=== PATIENT | female | born 1955 | race Caucasian/White ===

== ENCOUNTER 2020-09-05 08:15 | Outpatient (CLI) | payer BC, SELFPAY ==
--- NOTE | ~2020-09-05 | US_ITS ---
EXAMINATION:US venous doppler LE RT INDICATION:Right leg swelling TECHNIQUE: Multiple grayscale, color flow and Doppler images of the right lower extremity deep venous systems were obtained and reviewed. COMPARISON:No prior studies for comparison. FINDINGS: The common femoral, superficial femoral and popliteal veins demonstrate normal respiratory variation, augmentation and compressibility. Color flow is also seen within the posterior tibial, pe roneal, greater saphenous and profunda veins. IMPRESSION: 1: No lower extremity deep venous thrombosis. Reviewed, dictated and finalized at location A.
== END 2020-09-05 08:16 | disposition home or self-care (01) ==
LOC: CHSIMG 08:18
PROVIDERS: PCP Internal Medicine; Visit Provider Internal Medicine
DX: M79.89 Other specified soft tissue disorders (principal)
CPT/HCPCS: 93971

== ENCOUNTER 2020-09-26 10:11 | Outpatient (CLI) | payer BC, SELFPAY ==
[2020-09-26 10:40] LABS: Basophils Absolute Auto 0.03 K/mm3 (0.00-0.10); Basophils Percent Auto 0.5 % (0.0-1.0); Eosinophils Absolute Auto 0.07 K/mm3 (0.02-0.50); Eosinophils Percent Auto 1.2 % (1.0-6.0); Hematocrit 39.8 % (35.0-49.0); Hemoglobin 12.8 g/dL (12.0-15.0); Immature Granulocyte Absolute 0.02 K/mm3 (0.00-0.00); Immature Granulocyte Percent A 0.3 % (0.0-0.0); Lymphocytes Absolute Auto 1.88 K/mm3 (1.10-4.50); Lymphocytes Percent Auto 31.5 % (18.0-42.0); Mean Corpuscular HGB Conc 32.2 g/dL (32.0-36.0); Mean Corpuscular Hemoglobin 29.2 pg (27.0-31.0); Mean Corpuscular Volume 90.7 fL (78.0-102.0); Mean Platelet Volume 10.5 fl (9.2-11.8); Monocytes Absolute Auto 0.42 K/mm3 (0.10-0.90); Neutrophils Absolute Auto 3.5 K/mm3 (1.7-7.2); Neutrophils Percent Auto 59.5 % (50.0-70.0); Platelet Count Result 267 K/mm3 (150-420); Red Blood Count 4.39 M/mm3 (4.20-5.40); Red Cell Distribution Width 14.6 % (11.6-14.4)
[2020-09-26 10:55] LABS: Add Urine Microscopic? NO; Appearance Urine Clear (Clear); Bilirubin Urine Negative (Negative); Blood Urine Negative (Negative); Color Urine Light Yellow (Yellow); Glucose Urine UA Negative (Negative); Ketones Urine Negative (Negative); Leukocyte Esterase Ur Negative (Negative); Nitrate Urine Negative (Negative); Protein Urine Negative (Negative); Specific Grav Ur <= 1.005 (1.010-1.020); Urobilinogen Urine 0.2 mg/dL (0.2-1.0)
[2020-09-26 11:04] LABS: Alanine Aminotransferase 27 U/L (14-59); Albumin Level 3.9 g/dL (3.4-5.0); Alkaline Phosphatase 66 U/L (46-116); Anion Gap 11 mmol/L (8-16); Aspartate Amino Transferase 17 U/L (15-37); Bilirubin,Total 0.4 mg/dL (0.00-1.00); Blood Urea Nitrogen 20 mg/dL (7-18); Calcium 9.3 mg/dL (8.5-10.1); Carbon Dioxide 27 mmol/L (21-32); Chloride 104 mmol/L (98-108); Cholesterol 256 mg/dL (0-200); Estimated Glomerular Filt Rate > 60; Free T4 Free Thyroxine 0.96 ng/dL (0.76-1.46); Glucose 96 mg/dL (70-99); HDL Direct 88 mg/dL (40-60); LDL Cholesterol Calculated 156 mg/dL (<130); Osmolality Calculated 296 mOsm/kg (285-295); Potassium 4.8 mmol/L (3.5-5.1); Sodium 142 mmol/L (136-145); Thyroid Stimulating Hormone 0.81 uIU/mL (0.36-3.74); Total Protein 7.4 g/dL (6.4-8.2); Triglycerides 60 mg/dL (0-150)
[2020-09-30 20:02] LABS: Vitamin D 25 Hydroxy 37 ng/mL (30-100)
== END 2020-09-26 10:12 | disposition home or self-care (01) ==
LOC: CHSLAB 10:13
PROVIDERS: PCP Internal Medicine; Visit Provider Internal Medicine
DX: Z00.00 Encounter for general adult medical examination without abnormal findings (principal)
CPT/HCPCS: 36415; 80053; 80061; 81003; 82306; 84439; 84443; 84481; 85025

== ENCOUNTER 2020-11-07 08:39 | Outpatient (CLI) | payer BC, SELFPAY ==
--- NOTE | ~2020-11-07 | DEXA_ITS ---
Bone Density Report Name: Antonietta Friedman Age: 64 Sex: Female Ethnicity: White Date of : 1955 Indication: postmenopausal; screening for osteoporosis; height loss; Referring Provider: Claude Shaw Study: Bone densitometry was performed. Exam Date: November 07, 2020 Accession number: [id number] Bone Density: Region BMD T-score Z-score Classification AP Spine(L1-L4) 1.085 0.3 2.0 Normal Femoral Neck (Left) 0.856 0.1 1.5 Normal Total Hip (Left) 1.011 0.6 1.7 Normal Femoral Neck (Right) 0.810 -0.4 1.1 Normal Total Hip (Right) 0.997 0.4 1.6 Normal Total Hip Mean 1.004 0.5 1.7 Normal World Health Organization criteria for BMD impression classify patients as: Normal (T-score at or above -1.0), Osteopenia (T-score between -1.0 and -2.5), or Osteoporosis (T-score at or below -2.5). 10-year Fracture Risk: FRAX not reported because: All T-scores for Spine Total, Hip Total, Femoral Neck at or above -1.0 Clinical Information Provided by Patient: Has used the following medications: Vitamin D, Calcium Patient maximum height was 68 Menopause Age: 52 Drinks caffeinated beverages Onset of menses at age 14 Number of children 2 Impression: The patient has normal bone mass. Discussion: BONE DENSITY IS ABOVE THE MINIMUM DESIRABLE LEVEL AT ALL SKELETAL SITES TESTED. This patient?s bone mineral density is above the minimum desirable level (T-score -1.0 or better) at all sites measured. The patient should follow a healthful lifestyle (good nutrition with adequate calcium and vitamin D, and appropriate weight-bearing exercise). Follow-Up: Consider repeating this study in 5 years or sooner if there is some new clinical indication. Reported by: Dr. Isael Beyer on 11/07/2020 9:12:00 AM. Reviewed, dictated and finalized at location AMonisha HASSAN
== END 2020-11-07 08:40 | disposition home or self-care (01) ==
LOC: CHSIMG 08:41
PROVIDERS: PCP Internal Medicine; Visit Provider Internal Medicine
DX: Z78.0 Asymptomatic menopausal state (principal)
CPT/HCPCS: 77080

== ENCOUNTER 2021-10-21 11:56 | Outpatient (CLI) | payer BC, SELFPAY ==
--- NOTE | ~2021-10-21 | XR_ITS ---
EXAM: XR shoulder RT min 2V, XR shoulder LT min 2V DATE: 10/21/2021 12:21 (accession [id number]), 10/21/2021 12:22 (accession [id number]) HISTORY: B/L shoulder pain x 1yr, RT worse than LT, LROM, crunchy . COMPARISON: Right shoulder x-ray 02/07/2010. FINDINGS: Decreased mineralization. No fracture or dislocation. No lytic or blastic lesion. Mild rig ht AC joint hypertrophy. Mild right humeral head osteophytosis. Moderate right humeral head superior migration. No erosion or periosteal change. Soft tissues within normal limits. IMPRESSION: Likely rotator cuff pathology on the right. Mild right AC joint and glenohumeral osteoart hritis. No significant radiographic finding in the left shoulder. Reviewed, dictated and finalized at [facility]. IMPRESSION: Likely rotator cuff pathology on the right. Mild right AC joint and glenohumeral osteoarthritis. No significant radiographic finding in the left s [place].
== END 2021-10-21 11:57 | disposition home or self-care (01) ==
LOC: CHSIMG 11:58
PROVIDERS: PCP Internal Medicine; Visit Provider Internal Medicine
DX: M25.512 Pain in left shoulder (principal); M25.511 Pain in right shoulder
CPT/HCPCS: 73030

== ENCOUNTER 2021-10-26 11:20 | Outpatient (CLI) | payer BC, SELFPAY ==
--- NOTE | ~2021-10-26 | US_ITS ---
US retroperitoneal comp 10/26/2021 12:10 Procedure: Realtime transabdominal ultrasound of the kidneys and bladder. Indication: Left hydronephrosis. History of breast cancer and melanoma. Comparison: No prior studies for comparison. Findings: Renal echotexture is normal bilaterally without contour deforming mass or renal calculus. T here is mild left hydronephrosis. The right kidney measures 10.4 cm and left kidney measures 11.3 cm. Bladder within normal limits. Impression: 1: Mild left hydronephrosis. Reviewed, dictated and finalized at location A. Impression: 1: Mild left hydronephrosis.
== END 2021-10-26 11:21 | disposition home or self-care (01) ==
LOC: CHSIMG 11:21
PROVIDERS: PCP Internal Medicine; Visit Provider Internal Medicine
DX: N13.30 Unspecified hydronephrosis (principal)
CPT/HCPCS: 76770

== ENCOUNTER 2021-11-01 12:42 | Outpatient (CLI) | payer BC, SELFPAY ==
--- NOTE | ~2021-11-01 | MR_ITS ---
EXAMINATION: MR shoulder RT wo con DATE: 11/01/2021 13:36 INDICATION: Right shoulder pain TECHNIQUE: Magnetic resonance imaging (MRI) of the right shoulder was performed without intravenous c ontrast. Sequences included axial PD-weighted FS FSE, coronal oblique PD-weighted FS FSE, coronal obl ique T2-weighted FS FSE, sagittal PD-weighted FS FSE, and sagittal T1-weighted SE. COMPARISON: None. FINDINGS: Coracoacromial arch: The acromion undersurface is minimally curved in morphology (type I-II). Small subacromial spurs darrin g the lateral margin of the acromion. The coracoacromial ligament is normal. Mild acromioclavicular o steoarthritis. Rotator cuff: Mild supraspinatus and infraspinatus tendinopathy with full-thickness tear extending 1.5 cm AP along the superior facet footplate and measuring approximately 2.5 cm medial to lateral. Additional small p artial-thickness articular sided tear involving the remaining more posterior supraspinatus tendon. Th e teres minor tendon is normal. Mild to moderate tendinopathy of the subscapularis tendon. Small spli t tear between the superficial portion of the tendon which remains contiguous with the transverse hum eral ligament and the deeper portion of the tendon which remains attached to the lesser tuberosity fo otplate. As well as mild medial subluxation of the long head biceps tendon across the medial rim of t he intertubercular groove and into the split tear defect. Normal rotator cuff muscle bulk and signal. Biceps tendon, glenoid labrum and glenohumeral cartilage: Long head of the biceps tendon is normal. Glenoid labrum is normal. Glenohumeral cartilage is normal. Fluid: Small glenohumeral joint effusion with extension with proportional small amount of fluid cartilage al tanja the long head biceps tendon sheath. Small amount of fluid in the subacromial/subdeltoid bursa gareth hnique with the fluid in the joint space through the full-thickness rotator cuff tear defect. No loos e osteochondral bodies. Bones: Normal marrow signal with no edema, fracture or pathologic marrow replacing process. IMPRESSION: 1. Mild supraspinatus and infraspinatus tendinopathy with small full-thickness tear along the superio r facet footplate of the supraspinatus tendon transitioning to a partial-thickness articular sided te ar at the posterior aspect of the supraspinatus tendon. 2. Mild to moderate subscapularis tendinopathy with small longitudinal split tear between the superfi cial portion of the tendon contiguous with the transverse humeral ligament and the deeper portion whi ch remains attached to the lesser tuberosity. 3. Partial subluxation of the long head biceps tendon across the medial rim of the intertubercular gr oove and into the subscapularis tendon split tear defect. Reviewed, dictated and finalized at location A. IMPRESSION: 1. Mild supraspinatus and infraspinatus tendinopathy with small full-thickness tear along the superior facet footplate of the supraspinatus tendon transitioni ng to a partial-thickness articular sided tear at the posterior aspect of the s upraspinatus tendon. 2. Mild to moderate subscapularis tendinopathy with small longitudinal split te ar between the superficial portion of the tendon contiguous with the transverse humeral ligament and the deeper portion which remains attached to the lesser t uberosity. 3. Partial subluxation of the long head biceps tendon across the medial rim of the intertubercular groove and into the subscapularis tendon split tear defect.
== END 2021-11-01 12:43 | disposition home or self-care (01) ==
LOC: ANHIMG 12:45
PROVIDERS: PCP Internal Medicine; Visit Provider Internal Medicine
DX: M25.511 Pain in right shoulder (principal)
CPT/HCPCS: 73221

== ENCOUNTER 2022-03-29 10:17 | Outpatient (CLI) | payer MEDICARE, BC, SELFPAY ==
[2022-03-29 10:37] LABS: Basophils Absolute Auto 0.03 K/mm3 (0.00-0.10); Basophils Percent Auto 0.4 % (0.0-1.0); Eosinophils Absolute Auto 0.09 K/mm3 (0.02-0.50); Eosinophils Percent Auto 1.2 % (1.0-6.0); Hematocrit 39.3 % (35.0-42.0); Hemoglobin 12.6 g/dL (11.7-13.8); Immature Granulocyte Absolute 0.02 K/mm3 (0.00-0.00); Immature Granulocyte Percent A 0.3 % (0.0-0.0); Lymphocytes Absolute Auto 2.68 K/mm3 (1.10-4.50); Lymphocytes Percent Auto 36.1 % (18.0-42.0); Mean Corpuscular HGB Conc 32.1 g/dL (32.0-36.0); Mean Corpuscular Volume 90.3 fL (78.0-102.0); Mean Platelet Volume 10.2 fl (9.2-11.8); Monocytes Absolute Auto 0.45 K/mm3 (0.10-0.90); Monocytes Percent Auto 6.1 % (2.0-11.0); Neutrophils Absolute Auto 4.2 K/mm3 (1.7-7.2); Neutrophils Percent Auto 55.9 % (50.0-70.0); Platelet Count Result 271 K/mm3 (150-420); Red Blood Count 4.35 M/mm3 (4.20-5.40); Red Cell Distribution Width 14.3 % (11.6-14.4); White Blood Count 7.4 K/mm3 (4.8-10.8)
[2022-03-29 10:45] LABS: Add Urine Microscopic? NO; Appearance Urine Clear (Clear); Bilirubin Urine Negative (Negative); Blood Urine Negative (Negative); Color Urine Light Yellow (Yellow); Glucose Urine UA Negative (Negative); Ketones Urine Negative (Negative); Leukocyte Esterase Ur Negative LEU/UL (Negative); Nitrate Urine Negative (Negative); Protein Urine Negative (Negative); Urobilinogen Urine 0.2 mg/dL (0.2-1.0)
[2022-03-29 11:24] LABS: Alanine Aminotransferase 26 U/L (14-59); Alkaline Phosphatase 69 U/L (46-116); Anion Gap 6 mmol/L (8-16); Aspartate Amino Transferase 14 U/L (15-37); Bilirubin,Total 0.5 mg/dL (0.00-1.00); Blood Urea Nitrogen 18 mg/dL (7-18); Calcium 9.5 mg/dL (8.5-10.1); Carbon Dioxide 30 mmol/L (21-32); Chloride 101 mmol/L (98-108); Cholesterol 288 mg/dL (0-200); Estimated Glomerular Filt Rate > 60; Free T4 Free Thyroxine 1.01 ng/dL (0.76-1.46); Glucose 90 mg/dL (70-99); HDL Direct 92 mg/dL (40-60); LDL Cholesterol Calculated 176 mg/dL (<130); Osmolality Calculated 285 mOsm/kg (285-295); Potassium 4.5 mmol/L (3.5-5.1); Sodium 137 mmol/L (136-145); Thyroid Stimulating Hormone 0.59 uIU/mL (0.36-3.74); Total Protein 7.3 g/dL (6.4-8.2); Triglycerides 102 mg/dL (0-150)
== END 2022-03-29 10:18 | disposition home or self-care (01) ==
LOC: CHSLAB 10:27
PROVIDERS: PCP Internal Medicine; Visit Provider Internal Medicine
DX: R53.83 Other fatigue (principal); E78.5 Hyperlipidemia, unspecified
CPT/HCPCS: 36415; 80053; 80061; 81003; 84439; 84443; 85025

== ENCOUNTER 2022-06-24 14:52 | Outpatient (CLI) | payer MEDICARE, BC, SELFPAY ==
--- NOTE | ~2022-06-24 | XR_ITS ---
XR knee RT 3V DATE: 06/24/2022 15:47 INDICATION: Generalized right knee pain for 6 months. No known injury. TECHNIQUE: 4 views COMPARISON: None FINDINGS: There is slight periarticular spurring of the patella and medial tibial plateau consistent with mild osteoarthritis. No fracture or dislocation or joint effusion. No radiopaque intra-articular loose body or chondrocalcinosis. No periosteal reaction or bone destruction. IMPRESSION: Mild osteoarthritis Reviewed, dictated and finalized at location A. IMPRESSION: Mild osteoarthritis
--- NOTE | ~2022-06-24 | XR_ITS ---
XR wrist RT min 3V DATE: 06/24/2022 15:46 INDICATION: Bump at first metacarpal for 6 months TECHNIQUE: 4 views of right wrist COMPARISON: None FINDINGS: Osteopenia. There is severe osteoarthritic joint space narrowing at the triscaphe joint. No fracture or dislocation, periosteal reaction or bone destruction or chondrocalcinosis. 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
== END 2022-06-24 14:53 | disposition home or self-care (01) ==
LOC: CHSIMG 14:55
PROVIDERS: PCP Internal Medicine; Visit Provider Internal Medicine
DX: M25.531 Pain in right wrist (principal); M25.561 Pain in right knee; M17.11 Unilateral primary osteoarthritis, right knee; M19.031 Primary osteoarthritis, right wrist; M85.89 Other specified disorders of bone density and structure, multiple sites
CPT/HCPCS: 73110; 73562

== ENCOUNTER 2022-07-03 06:53 | Outpatient (CLI) | payer MEDICARE, BC, SELFPAY ==
--- NOTE | ~2022-07-03 | MR_ITS ---
EXAMINATION: MR knee RT wo con DATE: 07/03/2022 07:55 INDICATION: Lateral right knee pain radiating to the ankle. The knee locks and gives out. TECHNIQUE: Magnetic resonance imaging (MRI) of the right knee was performed without intravenous contr ast. Sequences included coronal PD-weighted FSE, coronal PD-weighted FS FSE, sagittal T2-weighted FS E, sagittal PD-weighted FS FSE and axial PD weighted fat saturated FSE. COMPARISON: None. FINDINGS: Medial compartment: Medial meniscus is normal. Articular cartilage is normal. Tiny marginal osteophytes are present. Lateral compartment: Longitudinal horizontal tear extending from the anterior horn to the posterior horn of the lateral me niscus. Partial-thickness chondral fissuring without degenerative subchondral changes at the anterior weightbearing lateral femoral condyle and juxtaposed central aspect of the lateral tibial plateau. Patellofemoral compartment: Regions of deep chondral ulceration at the medial and lateral patellar facets, the latter with underl tru subarticular cystic change along the cephalad lateral margin of the apical ridge. Additional gwyn p chondral ulceration at the inferior half of the trochlear groove with underlying tiny central subch ondral osteophyte. Ligaments and tendons: Anterior and posterior cruciate ligaments are normal. The medial collateral ligament and fibular betsy ateral ligament complex are normal. The extensor mechanism is normal. The visualized medial and later al hamstring tendons as well as the iliotibial band are normal. Fluid: Physiologic amount of fluid in the joint space. Osseous/other: Normal marrow signal. No fracture or pathologic marrow replacing process. 1.6 x 1.3 x 0.6 cm ovoid lo w signal intensity lesion overlying the anterior root of the medial meniscus potentially representing a loose body but without evident calcification at this location on the prior radiographs. Differenti al would include focal fibrosis or localized pigmented villonodular synovitis. IMPRESSION: 1. Longitudinal horizontal tear extending from anterior to posterior horn of the lateral meniscus. 2. Mild tricompartmental osteoarthritis with regions of high-grade chondromalacia in the patellofemor al compartment and moderate grade chondromalacia in the lateral compartment and tiny marginal osteoph ytes but without appreciable chondromalacia in the medial compartment. 3. 1.6 x 1.3 x 0.6 similar ovoid T1 and T2 hypointense lesion Hoffa's fat pad overlying the anterior root of the medial meniscus most likely either a loose body or localized pigmented villonodular synov itis. Reviewed, dictated and finalized at location A. IMPRESSION: 1. Longitudinal horizontal tear extending from anterior to posterior horn of th e lateral meniscus. 2. Mild tricompartmental osteoarthritis with regions of high-grade chondromalac ia in the patellofemoral compartment and moderate grade chondromalacia in the l ateral compartment and tiny marginal osteophytes but without appreciable chondr omalacia in the medial compartment. 3. 1.6 x 1.3 x 0.6 similar ovoid T1 and T2 hypointense lesion Hoffa's fat pad o verlying the anterior root of the medial meniscus most likely either a loose jammie dy or localized pigmented villonodular synovitis.
== END 2022-07-03 06:54 | disposition home or self-care (01) ==
LOC: CHSIMG 06:55
PROVIDERS: PCP Internal Medicine; Visit Provider Internal Medicine
DX: M25.561 Pain in right knee (principal); S83.281A Other tear of lateral meniscus, current injury, right knee, initial encounter; M17.11 Unilateral primary osteoarthritis, right knee; M94.261 Chondromalacia, right knee
CPT/HCPCS: 73721

== ENCOUNTER 2022-07-13 15:21 | Outpatient (CLI) | payer MEDICARE, BC, SELFPAY ==
--- NOTE | ~2022-07-13 | MR_ITS ---
EXAMINATION: MR wrist RT wo con DATE: 07/13/2022 16:24 INDICATION: Right wrist pain TECHNIQUE: Magnetic resonance imaging (MRI) of the right wrist wrist was performed without intravenou s contrast. Sequences performed include axial PD-weighted FSE and PD-weighted FS FSE, coronal PD-weig hted FS FSE and T1-weighted SE, and sagittal PD-weighted FS FSE and PD-weighted FSE. COMPARISON: Right wrist radiographs dated 06/24/2022 FINDINGS: Intrinsic ligaments: Partial tear of the volar and central membranous component of the scapholunate ligament. The dorsal c omponent appears to remain intact. There is amorphous low to intermediate signal intensity in the reg ion of the volar component of the lunotriquetral ligament without a discrete fluid signal intensity t ear. There is mild cystic change at the ulnar side of the lunate along the proximal margin of its art iculation with the triquetrum at the expected site of insertion of the ligament. Findings suggest sca rring related to partial tear of the ligament. Triangular fibrocartilage complex (TFCC): There is a linear partial-thickness tear along the distal margin to the ulnar side of the central fib er cartilaginous disc of the triangular fibrocartilage complex. There is a partial tear of the dorsal radioulnar ligament. The volar radioulnar ligament along with the radial, foveal and styloid attachm ents of the triangular fibrocartilage complex remain intact. Mild increased signal and thickening of the distal aspect of the ulnar triquetral ligament also suggesting scarring related to partial tear. There is a tear of the ulnar side of the extensor carpi ulnaris of sheath allowing partial subluxatio n of the normal-appearing extensor carpi ulnaris tendon across the ulnar rim of the intertubercular g roove. Extensor wrist: Extensor tendons of the wrist are normal. No tenosynovitis. Flexor wrist: There is moderate amount fluid extending along the flexor carpi radialis tendon sheath consistent wit h moderate tenosynovitis. The flexor carpi radialis tendon remains normal. The flexor tendons of the wrist are otherwise normal. No abnormality in the carpal tunnel with normal median nerve. Guyon's canal: Guyon's canal including the ulnar nerve and artery are normal. Bones/other: Bone alignment is normal. No fracture or pathologic marrow replacing process. Osteoarthritis, moderat e severity with subarticular edema-like and cystlike changes at the triscaphe joint and mild at the d istal radioulnar, midcarpal and first and second carpal metacarpal joints. IMPRESSION: 1. Moderate tenosynovitis along the normal flexor carpi radialis tendon which directly underlies the marker indicating the site of pain. 2. Partial tear of the central fiber cartilaginous disc and dorsal radioulnar component of the triang ular fibrocartilage complex. 3. Partial tears of the scapholunate and lunotriquetral ligaments. 4. Polyarticular osteoarthritis at the right wrist and carpus, moderate severity at the triscaphe bobby nt and otherwise mild. Reviewed, dictated and finalized at location A. IMPRESSION: 1. Moderate tenosynovitis along the normal flexor carpi radialis tendon which d irectly underlies the marker indicating the site of pain. 2. Partial tear of the central fiber cartilaginous disc and dorsal radioulnar c omponent of the triangular fibrocartilage complex. 3. Partial tears of the scapholunate and lunotriquetral ligaments. 4. Polyarticular osteoarthritis at the right wrist and carpus, moderate severit y at the triscaphe joint and otherwise mild.
== END 2022-07-13 15:22 | disposition home or self-care (01) ==
PROVIDERS: PCP Internal Medicine; Visit Provider Internal Medicine
DX: M65.841 Other synovitis and tenosynovitis, right hand (principal); S63.591A Other specified sprain of right wrist, initial encounter; M19.031 Primary osteoarthritis, right wrist; X58.XXXA Exposure to other specified factors, initial encounter
CPT/HCPCS: 73221

== ENCOUNTER 2022-08-09 13:44 | Outpatient (RCR) | payer MEDICARE, BC, SELFPAY ==
--- NOTE | 2022-08-09 15:05 | PTOPEVAL1 ---
Assessment and note entered by Radha Falk DPT Evaluation Information Assessment Status Evaluation Diagnosis R knee pain Onset 08/03/22 Subjective Information Patient reports about a month ago she was out of a walk and her knee R buckled and since then her pain has increased. She reports she had a R hip replacement about 1 year ago and reports her knee always went in with walking. Patient has not returned to power walking, riding her bike, lifting heavy objects, carrying and standing for prolonged periods. She is retired. Reported Pain Level Pain Score 0: Self Report Assessment PT Clinical Summary Patient is a 66 year old female who presents to PT with R knee pain. She demonstrates decreased R knee strength, decreased R knee AROM and impaired gait mechanics limiting her ability to squat and lift objects for house hold chores, ambulate prolonged distances and stand for house hold tasks . She would benefit from skilled PT to address impairments and return to PLOF. Plan of Care Interventions Electrical Stimulation,Gait Training,Hot Pack/Cold Pack,Intermittent Compression,Manual Therapy, Mechanical Traction,Neuro Re-education,Patient/ Caregiver Educati,Therapeutic Activities, Therapeutic Exercise,Self-Care/Home Management PT Services Indicated Yes Treatment Frequency and 2x weekly for 12 visits Duration These treatments will address the objective and functional deficits as defined above. The patient will be advanced safely and appropriately in order for the patient to progress towards his/her prior level of function. Additional exercises will be introduced and as well as a comprehensive home exercise program upon discharge, if needed, ?to ensure carryover of functional gains achieved in the clinic. This treatment plan has been reviewed and agreement upon by the patient.
--- NOTE | 2022-08-10 07:56 | OPREHPOC ---
Outpatient Therapy Plan of Care This is a Multidisciplinary Plan of Care that may contain components documented by all disciplines (PT, OT, and ST.) PT Problem 1 PT Problem #1 Knowledge Deficit PT Goal 1 Goal Patient to demonstrate independence with HEP. Target Visit 12 PT Problem 2 PT Problem #2 Pain PT Goal 1 Goal Patient to report ability to walk 1 mile with no increase in pain. Target Visit 12 PT Problem 3 PT Problem #3 Impaired Range of Motion PT Goal 1 Goal Patient to demonstrate 0-140 degrees of active ROM of the R knee to return to picking up objects at PLOF Target Visit 12 PT Problem 4 PT Problem #4 Impaired Strength PT Goal 1 Goal Patient to demonstrate 5/5 strength of R knee and hip to return to prolonged standing and ambulation at PLOF. Target Visit 12
--- NOTE | 2022-09-23 15:33 | PTOPDC ---
Assessment and note entered by JT File, PT Evaluation Information Assessment Status Discharge Diagnosis R knee pain Onset 08/03/22 Subjective Information patient reports she feels great today. she reports no pain. she reports she is joining [employer] to continue her exercise routine. Reported Pain Level Pain Score 0: Self Report Assessment PT Clinical Summary mrs. fonseca presents to skilled PT for her 12th skilled PT visit. she has met all goals for skilled PT, except for rom into flexion of the R knee. she will DC skilled PT today and continue with HEP independent at home and in the gym. Plan of Care PT Services Indicated Yes
--- NOTE | 2022-09-23 15:33 | OPREHPOC ---
Outpatient Therapy Plan of Care This is a Multidisciplinary Plan of Care that may contain components documented by all disciplines (PT, OT, and ST.) PT Problem 1 PT Problem #1 Knowledge Deficit PT Goal 1 Goal Patient to demonstrate independence with HEP. Target Visit 12 Progress Met PT Problem 2 PT Problem #2 Pain PT Goal 1 Goal Patient to report ability to walk 1 mile with no increase in pain. Target Visit 12 Progress Met PT Problem 3 PT Problem #3 Impaired Range of Motion PT Goal 1 Goal Patient to demonstrate 0-140 degrees of active ROM of the R knee to return to picking up objects at PLOF Target Visit 12 Progress Partially Met PT Problem 4 PT Problem #4 Impaired Strength PT Goal 1 Goal Patient to demonstrate 5/5 strength of R knee and hip to return to prolonged standing and ambulation at PLOF. Target Visit 12 Progress Met
== END 2022-09-23 16:04 | disposition home or self-care (01) ==
LOC: CHSPT 13:44
DX: M25.561 Pain in right knee (principal); G89.29 Other chronic pain
CPT/HCPCS: 97110; 97112; 97140; 97150; 97161

== ENCOUNTER 2022-10-14 02:19 | Day surgery (SDC) | payer MEDICARE, BC, SELFPAY ==
[2022-10-06 08:43] VITALS: BMI 25.4
[2022-10-14 06:32] VITALS: BP 108/72; PULSE 78; RESP 18; TEMP 36.2; O2SAT 100
[2022-10-14] MEDS: LACTATED RINGERS 1,000 ML 150 ML IV CONT (06:45)
[2022-10-14 07:15] VITALS: BMI 25.0
--- NOTE | 2022-10-14 07:26 | P.PNAN_ITS ---
Anes - Initial Pre Proc Eval Procedure: Operation Date: 10/14/22 07:30 Proposed Procedures p Screening Colonoscopy - Yoan Carolina DO Date/Time: 10/14/22 07:26 Surgeon: Yoan Carolina DO Pre Op Diagnosis: neoplasm screening Patient Data Age: 66 Gender: F Height: 1.73 m Weight: 74.6 kg Last Vital Signs Temp 97.2 F L 10/14/22 06:32 Pulse 78 10/14/22 06:32 Resp 18 10/14/22 06:32 BP 108/72 10/14/22 06:32 Pulse Ox 100 10/14/22 06:32 O2 Del Method Room Air 10/14/22 06:32 Allergies Allergy/AdvReac Type Severity Reaction Status Date / Time No Known Allergies Allergy Verified 10/14/22 06:29 Home Medications Medication Instructions Recorded Confirmed Type meloxicam 15 mg tablet 15 mg PO DAILY 10/06/22 10/14/22 History Patient hx anesthesia problems: none Family hx anesthesia problems: none Results Review: All pre-operative results and documents have been reviewed as part of the pre-operative evaluation. [facility] Social History Social History (System 10/30/21 @ 10:19 by Adrian Mcgee) Smoking status: Former smoker Additional smoking assessment comments: social smoker in college Alcohol intake: current Drinks per week: 2 Substance use: never Substance use type: does not use Living arrangements: with family Spiritual care concerns: No Anes - Eval Final PreProcedure Day of Procedure 10/14/22 07:26 Patient weight: normal Heart: regular rate and rhythm Lungs: clear to auscultation Airway: Mallampati scale class II Neurological: alert and oriented Last oral intake: >/= 8 hours ASA classification: II Emergent: no Anesthetic plan: proceed Anesthesia type and monitoring: general GIVS and standard monitoring Results Review: All pre-operative results and documents have been reviewed as part of the pre- operative evaluation. Informed Consent: The patient's anesthetic plan and its attendant risks and benefits were discussed with the patient/family/POA. Questions were solicited and answers provided to the satisfaction of the patient/family/POA.
--- NOTE | 2022-10-14 07:31 | PM.IMHP ---
H&P: HPI History of Present Illness Date/Time: 10/14/22 07:31 Chief Complaint: Screening for colorectal cancer Narrative: This is a 66-year-old woman who presents for colonoscopy. Her last colonoscopy was 10 years ago. Diverticulosis was noted but no other abnormalities were seen. She denies any first-degree family members with history of colon cancer. She denies any hematochezia or melena. Review of Systems Review of Systems: All systems reviewed & are unremarkable except as noted in HPI and below Constitutional: Constitutional: Denies chills, Denies fever(s), Denies headache(s) and Denies weight loss Eyes: Eyes: Denies change in vision ENT: Denies dizziness, Denies headache(s), Denies neck mass and Denies throat swelling Cardiovascular: Cardiovascular: Denies chest pain, Denies lightheadedness and Denies dyspnea Respiratory: Respiratory: Denies cough, Denies dyspnea and Denies wheezing Gastrointestinal: Gastrointestinal: Denies abdominal pain, Denies change in bowel habits, Denies nausea and Denies vomiting Genitourinary: Genitourinary: Denies hematuria and Denies dysuria Musculoskeletal: Musculoskeletal: Reports as per HPI Integumentary/Breasts: Skin/Breast: Reports as per HPI Neurologic: Denies dizziness and Denies headache(s) Allergic/Immunologic: Allergic/Immunologic: Denies throat swelling and Denies wheezing PMFSH Surgical History Surgical History (Updated 10/14/22 @ 07:32 by Yoan Carolina DO) History of exploratory laparotomy Social History Social History Smoking status: Former smoker Additional smoking assessment comments: social smoker in college Alcohol intake: current Drinks per week: 2 Substance use: never Substance use type: does not use Living arrangements: with family Spiritual care concerns: No Meds Home Medications and Allergies Home Medications Medication Instructions Recorded Confirmed Type meloxicam 15 mg tablet 15 mg PO DAILY 10/06/22 10/14/22 History Allergies Allergy/AdvReac Type Severity Reaction Status Date / Time No Known Allergies Allergy Verified 10/14/22 06:29 Vital Signs Vital Signs - 24 hr 10/14/22 06:32 Temperature 36.2 C L Pulse Rate 78 Respiratory Rate 18 Blood Pressure 108/72 Pulse Oximetry 100 Oxygen Delivery Room Air Exam Const: General: no acute distress and alert Orientation/consciousness: patient oriented x3 HENMT: Head: normocephalic and atraumatic Ears: hearing grossly normal bilaterally Face/Nose/Sinus: Normal nares present Mouth: Yes Normal oral and palatal mucosa present Eyes: Periorbital: periorbital findings normal Sclera: sclerae normal EOM: EOMs intact bilaterally Neck: Neck: normal visual inspection, no lymphadenopathy and trachea midline Chest: Chest palpation & inspection: normal inspection of the chest Resp: Effort & Inspection: normal respiratory effort Auscultation: clear to auscultation bilaterally Cardio: Jugular venous distension: no JVD Rate: regular rate Rhythm: regular rhythm Heart sounds: S1 normal heart sound present and S2 normal heart sound present Peripheral pulses: Peripheral pulses 2+ throughout GI: Inspection: normal to inspection GI Palp: Yes Soft to palpation, No Tenderness to palpation present (GI), No Guarding due to palpation present (GI) and No Rebound tenderness present Percussion: Yes normal to percussion Auscultation: normal bowel sounds : General: Yes no CVA tenderness Back/Spine/Pelvis: Back: no CVA tenderness Neuro: General: patient oriented x3, no focal motor deficits and CN's II-XI intact bilaterally Cognition (Neuro): normal cognition Speech: normal speech Motor exam (neuro): 5/5 motor strength present throughout Extrem: General: capillary refill normal and no clubbing, cyanosis or edema Assessment and Plan Assessment and plan (1) Screening for colorectal cancer: Code
[2022-10-14 07:55] VITALS: BP 109/58; PULSE 58; RESP 19; O2SAT 100
[2022-10-14 08:05] VITALS: BP 102/61; PULSE 56; RESP 17; O2SAT 97
[2022-10-14 08:15] VITALS: BP 106/68; PULSE 54; RESP 16; O2SAT 98
== END 2022-10-14 08:24 | disposition home or self-care (01) ==
PROVIDERS: PCP Internal Medicine; Visit Provider Surgery
PROC: 0DJD8ZZ Inspection of Lower Intestinal Tract, Via Natural or Artificial Opening Endoscopic (ICD-10-PCS; CPT 45378; principal; 2022-10-14 07:30)
DX: Z12.11 Encounter for screening for malignant neoplasm of colon (principal); K57.30 Diverticulosis of large intestine without perforation or abscess without bleeding; K64.8 Other hemorrhoids; Z87.891 Personal history of nicotine dependence
CPT/HCPCS: G0121; J2704; J7120

== ENCOUNTER 2022-11-17 09:31 | Outpatient (CLI) | payer MEDICARE, SELFPAY ==
[2022-11-17 10:11] LABS: Cholesterol 279 mg/dL (0-200); HDL Direct 84 mg/dL (40-60); LDL Cholesterol Calculated 184 mg/dL (<130); Triglycerides 55 mg/dL (0-150)
== END 2022-11-17 09:32 | disposition home or self-care (01) ==
LOC: CHSLAB 09:33
PROVIDERS: PCP Internal Medicine; Visit Provider Internal Medicine
DX: E78.00 Pure hypercholesterolemia, unspecified (principal)
CPT/HCPCS: 36415; 80061

== ENCOUNTER 2022-12-14 00:30 | Emergency (ER) | payer MEDICARE, BC, SELFPAY ==
[2022-12-14] VITALS (16 sets, daily range): BP systolic 91–133; BP diastolic 52–84; PULSE 63–76; RESP 10–20; TEMP 36.4–36.6; O2SAT 95–100
--- NOTE | ~2022-12-14 | XR_ITS ---
EXAMINATION: XR chest 1V portable DATE: 12/14/2022 00:54 INDICATION: Left chest pain. TECHNIQUE: A single frontal view of the chest was obtained on 2 radiographs. COMPARISON: None. FINDINGS: There is mild atelectasis versus scarring in right lower lung zone. No pleural effusion or pneumothorax. The heart size is normal. IMPRESSION: 1. Mild atelectasis versus scarring in right lower lung zone. Reviewed, dictated and finalized at location A.
--- NOTE | 2022-12-14 00:31 | ECG_ITS ---
Measurements Intervals [place] Rate: 66 P: 47 MI: 165 QRS: 43 QRSD: 91 T: 46 QT: 399 QTc: 418 Interpretive Statements SINUS RHYTHM BASELINE ARTIFACT- I, II, AVR, AVL, AVF NORMAL ECG NO PREVIOUS ECG AVAILABLE FOR COMPARISON Electronically Signed On 12-14-2022 6:37:37 CDT by Vish Serrano D.O.
--- NOTE | 2022-12-14 00:46 | ED.GENADULT ---
HPI - General Adult General Chief complaint: Chest Pain Stated complaint: Chest Pain History of Present Illness HPI narrative: 67-year-old female presenting with left-sided chest pressure. Patient states her symptoms started approximately 30 minutes ago. She describes her symptoms as intermittent left-sided chest pressure. No associated symptoms. Patient states she has had similar symptoms in the past. She denies any recent illnesses or trauma. Related Data Home Medications Medication Instructions Recorded Confirmed meloxicam 15 mg tablet 15 mg PO DAILY 10/06/22 12/14/22 Allergies Allergy/AdvReac Type Severity Reaction Status Date / Time No Known Allergies Allergy Verified 10/14/22 06:29 [facility] Surgical History Surgical History (Updated 10/14/22 @ 07:32 by Yoan Carolina DO) History of exploratory laparotomy Social History Social History Smoking status: Former smoker Additional smoking assessment comments: social smoker in college Alcohol intake: current Drinks per week: 2 Substance use: never Substance use type: does not use Living arrangements: with family Spiritual care concerns: No Exam Narrative: Unremarkable physical exam. All systems negative. Course Vital Signs Vital signs: Vital Signs Pulse Rate 70 12/14/22 00:30 Pulse Oximetry 100 12/14/22 00:30 Oxygen Delivery Room Air 12/14/22 00:30 Temperature 36.4 C 12/14/22 00:32 Pulse Rate 63 12/14/22 03:31 Respiratory Rate 13 12/14/22 03:30 Blood Pressure 100/65 12/14/22 03:30 Pulse Oximetry 98 12/14/22 03:30 Oxygen Delivery Room Air 12/14/22 03:30 Medical Decision Making [facility] Narrative Medical decision making narrative: Unrevealing workup. Negative troponin x2. Nonischemic EKG x2. No emergent laboratory derangements. My interpretation of chest x-ray is without acute pathological findings. Heart score 3. I see no indication that the chest pain is cardiac etiology. Patient's risk profile is low for cardiac source. However, given her age I did offer observation. The patient declined. Patient states he is scheduled to have a stress test performed. She has good follow-up. She has no red flag symptomatology. She appears well. She is nontoxic appearing. P was given strict return precautions and follow-up instructions. She feels safe to proceed outpatient management. Vital Signs Vital Signs: Vital Signs Pulse Rate 70 12/14/22 00:30 Pulse Oximetry 100 12/14/22 00:30 Oxygen Delivery Room Air 12/14/22 00:30 Temperature 36.4 C 12/14/22 00:32 Pulse Rate 63 12/14/22 03:31 Respiratory Rate 13 12/14/22 03:30 Blood Pressure 100/65 12/14/22 03:30 Pulse Oximetry 98 12/14/22 03:30 Oxygen Delivery Room Air 12/14/22 03:30 Lab Data Lab results reviewed: Yes I reviewed the patient's lab results. 12/14/22 00:47 12/14/22 00:47 Labs: Lab Results 12/14/22 12/14/22 Range/Units 00:47 03:52 WBC 8.2 (4.8-10.8) K/mm3 RBC 4.07 L (4.20-5.40) M/mm3 Hgb 12.1 (11.7-13.8) g/dL Hct 37.8 (35.0-42.0) % MCV 92.9 (78.0-102.0) fL MCH 29.7 (27.0-31.0) pg MCHC 32.0 (32.0-36.0) g/dL RDW 13.9 (11.6-14.4) % Plt Count 250 (150-420) K/mm3 MPV 10.7 (9.2-11.8) fl Immature Gran % (Auto) 0.1 H (0.0-0.0) % Neut % (Auto) 47.0 L (50.0-70.0) % Lymph % (Auto) 42.8 H (18.0-42.0) % Parker % (Auto) 7.3 (2.0-11.0) % Eos % (Auto) 2.4 (1.0-6.0) % Baso % (Auto) 0.4 (0.0-1.0) % Lymph # (Auto) 3.52 (1.10-4.50) K/mm3 Parker # (Auto) 0.60 (0.10-0.90) K/mm3 Eos # (Auto) 0.20 (0.02-0.50) K/mm3 Baso # (Auto) 0.03 (0.00-0.10) K/mm3 Abs Immat Gran (auto) 0.01 H (0.00-0.00) K/mm3 Absolute Neuts (auto) 3.9 (1.7-7.2) K/mm3 Absolute Nucleated RBC 0.00 (0.00-0.00) K/mm3 Nucleated RBC % 0.0 (0-0.0) % PT 9
[2022-12-14 00:50] LABS: Basophils Absolute Auto 0.03 K/mm3 (0.00-0.10); Basophils Percent Auto 0.4 % (0.0-1.0); Eosinophils Percent Auto 2.4 % (1.0-6.0); Hematocrit 37.8 % (35.0-42.0); Hemoglobin 12.1 g/dL (11.7-13.8); Immature Granulocyte Absolute 0.01 K/mm3 (0.00-0.00); Immature Granulocyte Percent A 0.1 % (0.0-0.0); Lymphocytes Absolute Auto 3.52 K/mm3 (1.10-4.50); Lymphocytes Percent Auto 42.8 % (18.0-42.0); Mean Corpuscular Hemoglobin 29.7 pg (27.0-31.0); Mean Corpuscular Volume 92.9 fL (78.0-102.0); Mean Platelet Volume 10.7 fl (9.2-11.8); Monocytes Percent Auto 7.3 % (2.0-11.0); Neutrophils Absolute Auto 3.9 K/mm3 (1.7-7.2); Platelet Count Result 250 K/mm3 (150-420); Red Blood Count 4.07 M/mm3 (4.20-5.40); Red Cell Distribution Width 13.9 % (11.6-14.4); White Blood Count 8.2 K/mm3 (4.8-10.8)
[2022-12-14] MEDS: ASPIRIN 81 MG CHEWABLE TABLET 324 MG PO (00:58)
[2022-12-14] MEDS: ONDANSETRON INJ 4 MG/2 ML VIAL IV PUSH (00:59)
[2022-12-14 01:00] LABS: INR 0.9; Partial Thromboplastin Time 25.4 SEC (23.90-30.70); Prothrombin Time 9.8 Seconds (9.50-12.10)
[2022-12-14 01:01] LABS: Alanine Aminotransferase 13 U/L (14-59); Albumin Level 3.6 g/dL (3.4-5.0); Alkaline Phosphatase 75 U/L (46-116); Anion Gap 6 mmol/L (8-16); Aspartate Amino Transferase 17 U/L (15-37); Bilirubin,Total 0.2 mg/dL (0.00-1.00); Blood Urea Nitrogen 17 mg/dL (7-18); Calcium 9.8 mg/dL (8.5-10.1); Carbon Dioxide 29 mmol/L (21-32); Chloride 106 mmol/L (98-108); Estimated CRCL calculation 59 ml/min; Estimated Glomerular Filt Rate > 60; Glucose 94 mg/dL (70-99); Osmolality Calculated 293 mOsm/kg (285-295); Potassium 3.9 mmol/L (3.5-5.1); Sodium 141 mmol/L (136-145); Total Protein 7.1 g/dL (6.4-8.2)
[2022-12-14 01:16] LABS: Troponin I 5.4 ng/L (0.00-60.4)
--- NOTE | 2022-12-14 01:30 | PC.NURSE ---
Pt resting c lights dimmed, no pain at this time, VSS, explained POC for 3 hr trop. Monitor shows NSR, call gomez at pt side.
[2022-12-14 01:37] LABS: NT Pro B Type Natriuretic Pept 125 pg/mL (0-125)
--- NOTE | 2022-12-14 03:30 | ECG_ITS ---
Measurements Intervals [place] Rate: 77 P: 46 TN: 164 QRS: 43 QRSD: 88 T: 31 QT: 388 QTc: 439 Interpretive Statements SINUS RHYTHM POSSIBLE LEFT ATRIAL ENLARGEMENT BASELINE ARTIFACT- I, II, AVR, AVL BORDERLINE ECG NO PREVIOUS ECG AVAILABLE FOR COMPARISON Electronically Signed On 12-14-2022 8:35:18 CDT by Vish Serrano D.O.
--- NOTE | 2022-12-14 03:33 | PC.NURSE ---
Pt sleeping, VSS, monitor shows NSR. Call gomez at pt side.
[2022-12-14 04:22] LABS: Troponin I 5.5 ng/L (0.00-60.4)
== END 2022-12-14 04:47 | disposition home or self-care (01) ==
PROVIDERS: Emergency Provider Emergency Medicine; PCP Internal Medicine
DX: R07.9 Chest pain, unspecified (principal); Z79.1 Long term (current) use of non-steroidal anti-inflammatories (NSAID); Z87.891 Personal history of nicotine dependence
CPT/HCPCS: 36415; 71045; 80053; 83880; 84484; 85025; 85610; 85730; 93005; 96374; 99284; A9270; J2405

== ENCOUNTER 2023-01-10 09:00 | Outpatient (CLI) | payer MEDICARE, BC, SELFPAY ==
--- NOTE | 2023-01-10 09:08 | EST_ITS ---
Patient Info Name: Antonietta Friedman Age: 67 years : 1955 Gender: Female Ht: 67 in Wt: 168 lbs BSA: 1.91 m2 HR: 69 bpm BP: 114 / 66 mmHg Heart Rhythm: Sinus Rhythm Technical Quality: Good Exam Date: 01/10/2023 9:35 AM Exam Location: [facility] Patient Status: Outpatient Admit Date: 01/10/2023 Staff Ordering Physician: Claude Shaw MD Attending Provider: Claude Shaw MD Exam Type: CA stress test treadmill Study Info A treadmill exercise stress test was performed. History/Risk Factors Family History: Coronary Artery Disease Summary 1. 1. Abnormal Terence exercise stress test for ischemic ST changes by ECG criteria. 2. 2. Good functional capacity, achieving 10 METs of workload. 3. 3. Appropriate HR response to exercise. 4. 4. Appropriate HR recovery at 1 minute post exercise. 5. 5. No imaging with stress testing. Protocol: Terence Stress ECG Details Stage: REST Duration (min): 1 min : 31 sec Speed (mph): 0.0 Grade (%): 0 HR (bpm): 71 SBP (mmHg): 114 DBP (mmHg): 66 METS: --- Stage: REST Duration (min): 7 min : 25 sec Speed (mph): 0.0 Grade (%): 0 HR (bpm): 79 SBP (mmHg): 114 DBP (mmHg): 66 METS: --- Stage: STAGE 1 Duration (min): 1 min : 0 sec Speed (mph): 1.7 Grade (%): 10 HR (bpm): 91 SBP (mmHg): 114 DBP (mmHg): 66 METS: --- Stage: STAGE 1 Duration (min): 2 min : 0 sec Speed (mph): 1.7 Grade (%): 10 HR (bpm): 99 SBP (mmHg): 114 DBP (mmHg): 66 METS: --- Stage: STAGE 1 Duration (min): 3 min : 0 sec Speed (mph): 1.7 Grade (%): 10 HR (bpm): 104 SBP (mmHg): 130 DBP (mmHg): 63 METS: --- Stage: STAGE 2 Duration (min): 1 min : 0 sec Speed (mph): 2.5 Grade (%): 12 HR (bpm): 111 SBP (mmHg): 130 DBP (mmHg): 63 METS: --- Stage: STAGE 2 Duration (min): 2 min : 0 sec Speed (mph): 2.5 Grade (%): 12 HR (bpm): 117 SBP (mmHg): 130 DBP (mmHg): 63 METS: --- Stage: STAGE 2 Duration (min): 3 min : 0 sec Speed (mph): 2.5 Grade (%): 12 HR (bpm): 123 SBP (mmHg): 165 DBP (mmHg): 67 METS: --- Stage: STAGE 3 Duration (min): 1 min : 0 sec Speed (mph): 3.4 Grade (%): 14 HR (bpm): 135 SBP (mmHg): 165 DBP (mmHg): 67 METS: --- Stage: STAGE 3 Duration (min): 2 min : 0 sec Speed (mph): 3.4 Grade (%): 14 HR (bpm): 143 SBP (mmHg): 165 DBP (mmHg): 67 METS: --- Stage: STAGE 3 Duration (min): 2 min : 5 sec Speed (mph): 3.4 Grade (%): 14 HR (bpm): 144 SBP (mmHg): 165 DBP (mmHg): 67 METS: --- Stage: RECOVERY Duration (min): 0 min : 54 sec Speed (mph): 0.0 Grade (%): 0 HR (bpm): 125 SBP (mmHg): 165 DBP (mmHg): 68 METS: --- Stage: RECOVERY Duration (min): 1 min : 55 sec Speed (mph): 0.0 Grade (%): 0 HR (bpm): 96 SBP (mmHg): 153 DBP (mmHg): 67 METS: --- Stage: RECOVERY
== END 2023-01-10 09:01 | disposition home or self-care (01) ==
PROVIDERS: PCP Internal Medicine; Visit Provider Internal Medicine
DX: I25.10 Atherosclerotic heart disease of native coronary artery without angina pectoris (principal)
CPT/HCPCS: 93017

== ENCOUNTER 2023-06-22 08:13 | Outpatient (CLI) | payer MEDICARE, SELFPAY ==
[2023-06-22 09:01] LABS: Cholesterol 191 mg/dL (0-200); HDL Direct 95 mg/dL (40-60); LDL Cholesterol Calculated 85 mg/dL (<130); Triglycerides 56 mg/dL (0-150)
== END 2023-06-22 08:14 | disposition home or self-care (01) ==
LOC: CHSLAB 08:15
PROVIDERS: PCP Internal Medicine; Visit Provider Internal Medicine Cardiovascular Disease
DX: E78.5 Hyperlipidemia, unspecified (principal)
CPT/HCPCS: 36415; 80061